=== PATIENT | male | born 1980 | race Two or more races ===

== ENCOUNTER 2025-03-15 11:42 | Outpatient (CLI) | payer OTHER | END 2025-03-15 11:54 | disposition home or self-care (01) | LOC: RAD 11:42 | PROVIDERS: ATTEND Physical Medicine & Rehabilitation Hospice and Palliative Medicine | DX: M25.511 Pain in right shoulder (principal); M75.51 Bursitis of right shoulder; M75.31 Calcific tendinitis of right shoulder ==

== ENCOUNTER 2025-10-11 11:48 | Outpatient (CLI) | payer OTHER | END 2025-10-11 11:51 | disposition home or self-care (01) | LOC: MRI 11:48 | PROVIDERS: ATTEND Physical Medicine & Rehabilitation | DX: M54.51 Vertebrogenic low back pain (principal) | CPT/HCPCS: 72148 ==